=== PATIENT | female | born 2000 | race Caucasian/White ===

== ENCOUNTER 2022-04-21 11:15 | Emergency (ER) | payer OTHER ==
[2022-04-21 11:45] VITALS: BP 118/69
--- NOTE | 2022-04-21 12:42 | ED Physician Documentation ---
History of Present Illness - Stated complaint Stated Complaint: HEAD INJ - Chief complaint Chief Complaint: Trauma Hd/Nk - Additonal information Additional information: 22-year-old female presents emergency department for evaluation of a bump on the back of her left occiput. She works for the [employer]. She was trying to close a sliding door that fell on her head. No loss of consciousness. Not anticoagulated. Has a mild headache. She has an ice pack applied to her posterior occiput. No history of previous injury. Review of Systems Constitutional: denies: Fever, Chills Eyes: reports: Reviewed and negative Ears: reports: Reviewed and negative Nose: reports: Reviewed and negative Throat: reports: Reviewed and negative Cardiac: reports: Reviewed and negative Neurologic: reports: Headache, Head injury. denies: Focal weakness, Numbness, Difficulty speaking, Near syncope, Syncope, Seizure, Confused, Altered mental status, LOC PD PAST MEDICAL HISTORY - Past Medical History Past Medical History: No - Past Surgical History Past Surgical History: No - Allergies Allergies/Adverse Reactions: Allergies Allergy/AdvReac Type Severity Reaction Status Date / Time No Known Drug Allergies Allergy Verified 04/21/22 11:45 - Social History Does the pt smoke?: No Smoking Status: Never smoker Does the pt drink ETOH?: No Does the pt have substance abuse?: No - Immunizations Immunizations are current?: Yes PD ED PE NORMAL - General General: Alert and oriented X 3, No acute distress, Well developed/nourished - HEENT HEENT: Atraumatic, PERRL, EOMI (Negative for raccoon eyes, mccord signs or hemotympanums.), Ears normal, Moist mucous membranes, Pharynx benign, Dentition benign, Other (Superficial abrasion left posterior occiput.) - Neck Neck: Supple, no meningeal sign, No adenopathy, C-Spine cleared by NEXUS criteria - Cardiac Cardiac: RRR, No murmur - Respiratory Respiratory: No respiratory distress, Clear bilaterally - Abdomen Abdomen: Normal bowel sounds, Soft, Non tender - Back Back: No CVA TTP, No spinal TTP - Derm Derm: Normal color, Warm and dry, No rash - Extremities Extremities: No deformity, No tenderness to palpate, Normal ROM s pain - Neuro Neuro: Alert and oriented X 3, pr manager 2-12 intact, No motor deficit, No sensory deficit, Normal speech Eye Opening: Spontaneous Motor: Obeys Commands Verbal: Oriented GCS Score: 15 Results - Vitals Vitals: Vital Signs - 24 hr 04/21/22 11:42 Temperature 36.2 C L Heart Rate 67 Respiratory 16 Rate Blood Pressure 118/69 O2 Saturation 100 Oxygen O2 Source Room air PD MEDICAL DECISION MAKING - ED course Complexity details: considered differential, d/w patient ED course: Well-appearing 22-year-old female the presents emergency department for evalu ation of a scalp abrasion sustained when 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 No loss of consciousness. Not anticoagulated. Unremarkable neuro exam. No findings to suggest a basilar or skull fracture. She did present the [employer] workers injury claim forms which I filled out including an activity prescription form. However I have returned her to full duty beginning tomorrow 04/22/2022. I anticipate no adverse events do to this injury. She is recommended Tylenol and ibuprofen for any discomfort. Departure - Departure Disposition: 01 Home, Self Care Clinical Impression: Scalp contusion Qualifiers: Encounter type: initial encounter Qualified Code(s): S00.03XA - Contusion of scalp, initial encounter Condition: Stable Record reviewed to determine appropriate education?: Yes Instructions: ED Head Injury Closed Comments: Nya you have a superficial contusion on your posterior scalp from being hit by the sliding door at work. I do not expect you to have any consequences or complicating findings given this injury. You can return to full duty tomorrow. In general I simply recommend Tylenol or ibuprofen for discomfort. If you find that you are having persistent issues you should follow-up with your Workmen's Comp. provider through the [place] [employer]. Return to the emergency department for sudden severe uncontrolled vomiting any lapse in consciousness
== END 2022-04-21 12:49 | disposition home or self-care (01) ==
LOC: ED 11:15
DX: S00.03XA Contusion of scalp, initial encounter (principal); W20.1XXA Struck by object due to collapse of building, initial encounter; Y93.89 Activity, other specified; Y92.9 Unspecified place or not applicable; Y99.0 Civilian activity done for income or pay
CPT/HCPCS: 99281; 99282

== ENCOUNTER 2022-09-14 09:00 | Emergency (ER) | payer OTHER ==
[2022-09-14 09:17] VITALS: BP 113/71
[2022-09-14] MEDS ORDERED: ACYCLOVIR 200 MG CAPSULE PO STA (09:33)
--- NOTE | 2022-09-14 09:37 | ED Physician Documentation ---
PD HPI WOUND RECHECK - Stated complaint Stated Complaint: SORE ON LIP - Chief complaint Chief Complaint: Wound - Histroy obtained from History obtained from: Patient (Cold sore on the lower lip starting last night. Third episode in 2 months. Prior to that had them once or twice yearly. She is under a lot of stress with work.) Review of Systems Constitutional: denies: Fever, Chills Cardiac: denies: Chest pain / pressure, Palpitations Respiratory: denies: Cough PD PAST MEDICAL HISTORY - Past Medical History Past Medical History: No - Past Surgical History Past Surgical History: No - Present Medications Home Medications: Ambulatory Orders Medication Instructions Recorded Confirmed norethindrone ac-eth estradioL 1 - 20 mg PO DAILY 09/14/22 09/14/22 [Microgestin 21 1-20 Tablet] valACYclovir [Valtrex] 2 tab PO BID #20 tablet 09/14/22 - Allergies Allergies/Adverse Reactions: Allergies Allergy/AdvReac Type Severity Reaction Status Date / Time No Known Drug Allergies Allergy Verified 09/14/22 09:17 - Social History Does the pt smoke?: No Smoking Status: Never smoker Does the pt drink ETOH?: No Does the pt have substance abuse?: No - Immunizations Immunizations are current?: Yes PD ED PE NORMAL - Vitals Vital signs reviewed: Yes - General General: Alert and oriented X 3, No acute distress - HEENT HEENT: Other (Small cold sore left lower lip, no signs of superinfection.) - Neuro Neuro: Alert and oriented X 3, Normal speech Results - Vitals Vitals: Vital Signs - 24 hr 09/14/22 09:14 Temperature 36.9 C Heart Rate 80 Respiratory 16 Rate Blood Pressure 113/71 O2 Saturation 100 Oxygen O2 Source Room air Departure - Departure Disposition: 01 Home, Self Care Clinical Impression: Herpes labialis Condition: Good Record reviewed to determine appropriate education?: Yes Instructions: ED Herpes Simplex Virus Type 1 Prescriptions: valACYclovir [Valtrex] 2 tab PO BID #20 tablet Comments: Call your doctor to arrange a follow-up appointment, make the next available appointment. In the interim, return anytime if worse or if new symptoms develop.
== END 2022-09-14 09:56 | disposition home or self-care (01) ==
LOC: ED 09:00
DX: B00.1 Herpesviral vesicular dermatitis (principal)
CPT/HCPCS: 99282; A9270